=== PATIENT | female | born 1945 | race Caucasian/White ===

== ENCOUNTER 2019-06-30 05:20 | Inpatient (IN) ==
--- NOTE | 2019-06-16 16:31 | PAT Medication Instructions ---
Medication Instructions Date of Service June 16, 2019 Home Medications C,E,zinc,copper [id number] [Ocuvite Adult 50 Plus] 1 cap PO BID acetaminophen [Tylenol Extra Strength] 1,000 - 1,500 mg PO BID PRN apple cider vinegar 480 mg PO QAM ascorbic acid (vitamin C) [Vitamin C] 600 mg PO DAILY aspirin 81 mg PO HS atorvastatin 80 mg PO PM carvedilol 6.25 mg PO BID coQ10 (ubiquinol) 200 mg PO BID empagliflozin [Jardiance] 25 mg PO QAM hydrochlorothiazide 25 mg PO QAM lactobacillus combination no.4 [Probiotic] 3,000 mmu cells PO QAM liraglutide [Victoza 2-Rajesh] 1.8 mg SUBCUT QAM lisinopril 20 mg PO BID metformin 1,000 mg PO BID montelukast 10 mg PO QAM omeprazole 20 mg PO QAM paroxetine HCl 20 mg PO QAM potassium chloride 20 meq PO QAM ticagrelor [Brilinta] 60 mg PO BID ASK your prescriber and surgeon aspirin 81 mg PO HS ticagrelor [Brilinta] 60 mg PO BID STOP taking 2 weeks before surgery (or as soon as possible if surgery is within 2 weeks) coQ10 (ubiquinol) 200 mg PO BID apple cider vinegar 480 mg PO QAM DO NOT take the morning of surgery Ocuvite Adult 50 Plus 1 cap PO BID ascorbic acid (vitamin C) [Vitamin C] 600 mg PO DAILY empagliflozin [Jardiance] 25 mg PO QAM hydrochlorothiazide 25 mg PO QAM lactobacillus combination no.4 [Probiotic] 3,000 mmu cells PO QAM lisinopril 20 mg PO BID metformin 1,000 mg PO BID montelukast 10 mg PO QAM potassium chloride 20 meq PO QAM Take morning of surgery With a small sip of water, OTHERWISE NOTHING TO EAT OR DRINK AFTER MIDNIGHT: acetaminophen [Tylenol Extra Strength] 1,000 - 1,500 mg PO BID PRN (okay to take up to 4 hours prior to surgery if needed) carvedilol 6.25 mg PO BID liraglutide [Victoza 2-Rajesh] 1.8 mg SUBCUT QAM omeprazole 20 mg PO QAM paroxetine HCl 20 mg PO QAM Take evening before surgery Ocuvite Adult 50 Plus 1 cap PO BID acetaminophen [Tylenol Extra Strength] 1,000 - 1,500 mg PO BID PRN (if needed) atorvastatin 80 mg PO PM carvedilol 6.25 mg PO BID lisinopril 20 mg PO BID metformin 1,000 mg PO BID Other Notes If you have any questions please call us at [phone] or [phone] or [phone] or [phone]
--- NOTE | 2019-06-17 13:43 | Anesthesiology Consultation ---
Date of Service June 17, 2019 Assessment & Plan (1) Encounter for pre-operative examination: - Awaiting surgeon-ordered cardiology preop evaluation scheduled 06/23 (Dr. Fuchs). - Awaiting surgeon-ordered PCP preop [facility] as well as response regarding abnormal preop CXR. - Med instructions: ASA/Brillinta instructions per surgeon/prescriber. - Check BSG AM DOS Chart Review Chart Review: Patient seen in Pre Admission Testing Teaching & Discussion Pre-Anesthesia Teaching/Discussion Notes: Instructed NPO after midnight before surgery,except medications with 15 cc of water. Medication instructions provided according to the PAT guidelines. History Surgery Operation Date: 06/30/19 12:05 Proposed Procedures p Right Reverse Total Shoulder Arthroplasty - Daniel Alcala MD Height/Weight Height: 5 ft 4.5 in Weight: 69.4 kg Allergies Allergy/AdvReac Type Severity Reaction Status Date / Time No Known Allergies Allergy Verified 06/16/19 15:46 Medications Home Medications Medication Instructions Recorded Confirmed Last Taken C,E,zinc,copper [id number] 1 cap PO BID 06/16/19 06/16/19 Unknown [Ocuvite Adult 50 Plus] acetaminophen [Tylenol Extra 1,000 - 1,500 mg PO BID PRN 06/16/19 06/16/19 Unknown Strength] apple cider vinegar 480 mg PO QAM 06/16/19 06/16/19 Unknown ascorbic acid (vitamin C) [Vitamin 600 mg PO DAILY 06/16/19 06/16/19 Unknown C] aspirin 81 mg PO HS 06/16/19 06/16/19 Unknown atorvastatin 80 mg PO PM 06/16/19 06/16/19 Unknown carvedilol 6.25 mg PO BID 06/16/19 06/16/19 Unknown coQ10 (ubiquinol) 200 mg PO BID 06/16/19 06/16/19 Unknown empagliflozin [Jardiance] 25 mg PO QAM 06/16/19 06/16/19 Unknown hydrochlorothiazide 25 mg PO QAM 06/16/19 06/16/19 Unknown lactobacillus combination no.4 3,000 mmu cells PO QAM 06/16/19 06/16/19 Unknown [Probiotic] liraglutide [Victoza 2-Rajesh] 1.8 mg SUBCUT QAM 06/16/19 06/16/19 Unknown lisinopril 20 mg PO BID 06/16/19 06/16/19 Unknown metformin 1,000 mg PO BID 06/16/19 06/16/19 Unknown montelukast 10 mg PO QAM 06/16/19 06/16/19 Unknown omeprazole 20 mg PO QAM 06/16/19 06/16/19 Unknown paroxetine HCl 20 mg PO QAM 06/16/19 06/16/19 Unknown potassium chloride 20 meq PO QAM 06/16/19 06/16/19 Unknown ticagrelor [Brilinta] 60 mg PO BID 06/16/19 06/16/19 Unknown insulin glargine [Lantus U-100 10 unit SUBCUT QAM 06/20/19 06/20/19 Unknown Insulin] Past Medical History Medical History Arthritis CAD (coronary artery disease) stents x 5 (2017)- on ASA/Brillinta/beta gee Crohns disease remission (x 20 years) Diabetes mellitus, type 2 NIDDM (oral + injectable) GERD (gastroesophageal reflux disease) controlled Hyperlipidemia Hypertension Myocardial Infarction 2017/follows with cardiology (Dr. Fuchs) Exercise / Class Metabolic Activity III < 4 Walking/Shop/Light housework Past Family History Family History Uncle Family history of diabetes mellitus Uncle Family history of diabetes mellitus Uncle Family history of diabetes mellitus Past Surgical History Surgical History History of adenoidectomy History of appendectomy History of bilateral tubal ligation History of bunionectomy of right great toe WITH HAMMERTOES REPAIR History of cardiac cath 04/13/17 AND 04/14/17- TOTAL 5 STENTS History of carpal tunnel release R/L History of colonoscopy History of esophagogastroduodenoscopy (EGD) History of hysterectomy + UNILATERAL OOPHORECTOMY History of laparotomy FOR ADHESION REMOVAL History of repair of rotator cuff R/L History of tonsillectomy History of total knee replacement LEFT Past Anesthesia History No Hx of Anesthesia Complications and No Family Hx of Anesthesia Complications History of PONV No Hx of PONV and No Hx of Motion Sickness Social History Smoking Status: Never smoker Do You Dip or Chew Tobacco: No Hx Alcohol Use: Yes Alcohol type: wine alcohol intake frequency: holidays/special occasions only Hx Substance Use: No Review of Systems Reflux controlled. Patient denies chest pain, shortness of breath, cough, wheezing, palpitations. Physical Exam Vital Signs VITALS BP 118/79 P 67 TEMP 98.1 SP02 94%RA RESP 20 PHYSICAL Full neck and c-spine range of motion. Full TMJ range of motion. TMD 3 finger breaths Mallampati Score 3 Dentition: intact Lungs: clear throughout to auscultation Cardiac: regular rate and rhythm, no murmurs noted Spine: normal Carotid arteries: negative bruit Extremities: no edema Testing Laboratory Results 06/17/19 14:22 06/17/19 14:20 PT 10.3 Seconds (9.0-12.0) 06/17/19 14:22 INR 1.0 (0.9-1.1) 06/17/19 14:22 APTT 24.3 Seconds (21.0-31.0) 06/17/19 14:22 Hemoglobin A1c 6.9 % (4.5-5.6) H 06/17/19 14:22 Urine Color Yellow 06/17/19 14:22 Urine Appearance Clear (Clear) 06/17/19 14:22 Urine pH 5.0 (4.5-7.5) 06/17/19 14:22 Ur Specific [place] 1.019 (1.000-1.030) 06/17/19 14:22 Urine Protein Negative (Negative) 06/17/19 14:22 Urine Glucose (UA) 3+ (Negative) H 06/17/19 14:22 Urine Ketones Negative (Negative) 06/17/19 14:22 Urine Nitrite Negative (Negative) 06/17/19 14:22 Ur Leukocyte Esterase Negative (Negative) 06/17/19 14:22 Blood Type O Positive 06/17/19 14:22 Antibody Screen NEGATIVE 06/17/19 14:22 06/17/19 14:22 Urine Culture - Final Urine,Clean Catch Escherichia coli Surgeon office made aware of + urine culture/e.coli Electrocardiogram Date: 06/17/19 Findings: + NSR @ (67) Chest X-Ray Date: 06/17/19 A few vague densities which project over the right midlung. These may reflect pleural plaques but are indeterminate. In the absence of prior studies for comparison, a chest CT is recommended. Echocardiogram Date: 07/20/17 LVEF 63%. No RWMA. Stress Test Date: 03/31/18 Type: nuclear No evidence of myocardial ischemia/infarction. EF 63%. Wall motion is normal.
--- NOTE | 2019-06-17 15:17 | XRay Report ---
XR chest Pre-admission PA/Lat CLINICAL HISTORY: Preoperative evaluation. COMPARISON STUDY: No previous studies for comparison. FINDINGS: Lung volumes are normal. There is no pneumothorax or pleural effusion. Cardiac size is norm al. Mediastinal contours are normal. There is no evidence for pulmonary edema. A few vague densities project over the right hemithorax. Postoperative findings within the right shoulder are noted. IMPRESSION: A few vague densities which project over the right midlung. These may reflect pleural pl aques but are indeterminate. In the absence of prior studies for comparison, a chest CT is recommende d. ACT 112: Negative or not required by law. Electronically signed by: Francisco Myers M.D. 06/17/2019 3:16 PM
[2019-06-17 15:56] LABS: Appearance Urine Clear (Clear); Bilirubin Urine Negative (Negative); Blood Urine Negative (Negative); Color Urine Yellow; Glucose Urine UA 3+ (Negative); Ketones Urine Negative (Negative); Leukocyte Esterase Urine Negative (Negative); Nitrite Urine Negative (Negative); Protein Urine Negative (Negative); Specific Gravity Urine 1.019 (1.000-1.030); Urobilinogen Urine Negative (Negative)
[2019-06-17 15:57] LABS: Basophils # (auto) 0.03 K/uL (0-0.2); Basophils % (auto) 0.4 %; Eosinophils # (auto) 0.22 K/uL (0-0.5); Eosinophils % (auto) 2.7 %; Hematocrit (blood only) 42.1 % (37-47); Hemoglobin 13.4 g/dL (12.0-16.0); Immature Granulocytes # (auto) 0.02 K/uL (0.00-0.02); Immature Granulocytes % (auto) 0.2 %; Lymphocytes # (auto) 2.14 K/uL (1.2-3.4); Lymphocytes % (auto) 26.3 %; Mean Corpuscular Hgb Conc 31.8 g/dL (32-36); Mean Corpuscular Volume 100.5 fL (80-100); Mean Platelet Volume 9.3 fL (7.4-10.4); Monocytes # (auto) 0.52 K/uL (0.11-0.59); Monocytes % (auto) 6.4 %; Neutrophils # (auto) 5.22 K/uL (1.4-6.5); Platelet Count 354 K/uL (130-400); RDW Coefficient of Variation 13.2 % (11.5-14.5); RDW Standard Deviation 48.3 fL (36.4-46.3); Red Blood Count 4.19 M/uL (4.2-5.4); White Blood Count 8.15 K/uL (4.8-10.8)
[2019-06-17 15:59] LABS: Albumin Level 3.9 gm/dl (3.4-5.0); BUN Creatinine Ratio 26.3 (10-20); Calcium 9.8 mg/dl (8.5-10.1); Creatinine Clr Calc Pharmacy 73.2 ml/min; Est GFR (African American) 101.6; Est GFR (Non-African American) 87.6; Potassium 4.1 mmol/L (3.5-5.1)
[2019-06-17 16:05] LABS: Partial Thromboplastin Ratio 0.9; Partial Thromboplastin Time 24.3 Seconds (21.0-31.0); Prothrombin Time 10.3 Seconds (9.0-12.0)
[2019-06-18 06:19] LABS: Estimated Average Glucose 151 mg/dl; Hemoglobin A1C 6.9 % (4.5-5.6)
--- NOTE | 2019-06-18 07:48 | Electrocardiogram Report ---
Test Reason : Blood Pressure : / mmHG Vent. Rate : 067 BPM Atrial Rate : 067 BPM P-R Int : 164 ms QRS Dur : 086 ms QT Int : 394 ms P-R-T Axes : 039 048 057 degrees QTc Int : 416 ms Normal sinus rhythm Normal ECG No previous ECGs available Confirmed by Benedict Gonzalez ([id number]) on 06/18/2019 7:48:15 AM Referred By: Daniel Alcala Confirmed By:Demarcus Gonzalez
--- NOTE | 2019-06-29 16:30 | History & Physical Report ---
Date of Service June 29, 2019 Assessment & Plan (1) Rotator cuff arthropathy of right shoulder: Treatment options discussed. She has failed conservative measures as above. Risks, benefits and alternatives to surgery including but not limited to infection, DVT, pain, stiffness, need for revision surgery, damage to blood vessels, damage to nerves, PE, , were discussed with the patient and they wish to proceed. Plan will be for right reverse total shoulder arthroplasty. Will plan on outpatient PT upon discharge. She can resume her daily aspirin and Brillinta post operatively. All questions answered. F/u in the office post operatively. History of Present Illness Chief Complaint: Right shoulder pain Primary Care Provider: Mikey Steel DO 74 year old female with PMHx significant for history of SD, HTN, high cholesterol, GERD, anxiety, and DM2 presents with ongoing right shoulder pain. Past RCR done in 2009. Updated MRI chronic massive and retracted rotator cuff tear. She has tried cortisone injection, antiinflammatories, and physical therapy with continued pain. She would like to proceed with surgical intervention. Patient denies headaches, sweats, fevers, chills, double vision, blurred vision, cough, sore throat, dysphagia, chest pain, sob, wheezing, n/v/d/c, numbness, tingling, fatigue, urinary symptoms, mood disorders. ROS positive for right shoulder pain and stiffness. Allergies Allergy/AdvReac Type Severity Reaction Status Date / Time No Known Allergies Allergy Verified 06/16/19 15:46 Home Medications Home Medications Medication Instructions Recorded Confirmed Type C,E,zinc,copper [id number] 1 cap PO BID 06/16/19 06/16/19 History [Ocuvite Adult 50 Plus] acetaminophen [Tylenol Extra 1,000 - 1,500 mg PO BID PRN 06/16/19 06/16/19 History Strength] apple cider vinegar 480 mg PO QAM 06/16/19 06/16/19 History ascorbic acid (vitamin C) [Vitamin 600 mg PO DAILY 06/16/19 06/16/19 History C] aspirin 81 mg PO HS 06/16/19 06/16/19 History atorvastatin 80 mg PO PM 06/16/19 06/16/19 History carvedilol 6.25 mg PO BID 06/16/19 06/16/19 History coQ10 (ubiquinol) 200 mg PO BID 06/16/19 06/16/19 History empagliflozin [Jardiance] 25 mg PO QAM 06/16/19 06/16/19 History hydrochlorothiazide 25 mg PO QAM 06/16/19 06/16/19 History lactobacillus combination no.4 3,000 mmu cells PO QAM 06/16/19 06/16/19 History [Probiotic] liraglutide [Victoza 2-Rajesh] 1.8 mg SUBCUT QAM 06/16/19 06/16/19 History lisinopril 20 mg PO BID 06/16/19 06/16/19 History metformin 1,000 mg PO BID 06/16/19 06/16/19 History montelukast 10 mg PO QAM 06/16/19 06/16/19 History omeprazole 20 mg PO QAM 06/16/19 06/16/19 History paroxetine HCl 20 mg PO QAM 06/16/19 06/16/19 History potassium chloride 20 meq PO QAM 06/16/19 06/16/19 History ticagrelor [Brilinta] 60 mg PO BID 06/16/19 06/16/19 History insulin glargine [Lantus U-100 10 unit SUBCUT QAM 06/20/19 06/20/19 History Insulin] Past Med/Surg History Medical History Arthritis CAD (coronary artery disease) stents x 5 (2017)- on ASA/Brillinta/beta gee Crohns disease remission (x 20 years) Diabetes mellitus, type 2 NIDDM (oral + injectable) GERD (gastroesophageal reflux disease) controlled Hyperlipidemia Hypertension Myocardial Infarction 2017/follows with cardiology (Dr. Fuchs) Surgical History History of adenoidectomy History of appendectomy History of bilateral tubal ligation History of bunionectomy of right great toe WITH HAMMERTOES REPAIR History of cardiac cath 04/13/17 AND 04/14/17- TOTAL 5 STENTS History of carpal tunnel release R/L History of colonoscopy History of esophagogastroduodenoscopy (EGD) History of hysterectomy + UNILATERAL OOPHORECTOMY History of laparotomy FOR ADHESION REMOVAL History of repair of rotator cuff R/L History of tonsillectomy History of total knee replacement LEFT Family History Uncle Family history of diabetes mellitus Uncle Family history of diabetes mellitus Uncle Family history of diabetes mellitus Social History Preferred Language: Sammarinese Communication Ability: Effective Outpatient Therapist Required: No Beliefs That Will Affect Care: None Current Living Situation: Alone Other Information That Helps Us Care for You: No Feels Safe at Home: Yes Safety Concerns: Feels Safe At This Time Smoking Status: Never smoker Do You Dip or Chew Tobacco: No ; Second Hand Exposure: Yes ( A CHILD) ; Hx Alcohol Use: Yes Alcohol type: wine Hx Substance Use: No Review of Systems All systems reviewed & are unremarkable except as noted in HPI & below Physical Exam Constitutional: well developed and well nourished; no acute distress Eyes: PERRL, conjunctivae normal, anicteric sclerae ENMT: external ear and nose normal, oropharynx normal Neck: trachea midline, no thyromegaly Respiratory: normal respiratory effort, lungs clear to auscultation Cardiovascular: Rate/Rhythm: regular rate and regular rhythm Extremities: no edema Question of possible systolic murmur Musculoskeletal: right shoulder: Active painful and decreased ROM. Positive impingement signs. 3/5 strength supraspinatus and infraspinatus Skin: no rashes, warm and dry Neurologic: patellar DTR's 2+ bilat, sensation intact Psychiatric: A+Ox3, euthymic affect Results & Data Laboratory Results Lab Results 06/17/19 06/17/19 06/17/19 Range/Units 14:20 14:22 14:22 WBC 8.15 (4.8-10.8) K/uL RBC 4.19 L (4.2-5.4) M/uL Hgb 13.4 (12.0-16.0) g/dL Hct 42.1 (37-47) % MCV 100.5 H (80-100) fL MCH 32.0 (25-34) pg MCHC 31.8 L (32-36) g/dL RDW Std Deviation 48.3 H (36.4-46.3) fL RDW Coeff of Radha 13.2 (11.5-14.5) % Plt Count 354 (130-400) K/uL MPV 9.3 (7.4-10.4) fL Immature Gran % (Auto) 0.2 % Neut % (Auto) 64.0 % Lymph % (Auto) 26.3 % [place] % (Auto) 6.4 % Eos % (Auto) 2.7 % Baso % (Auto) 0.4 % Immature Gran # (Auto) 0.02 (0.00-0.02) K/uL Neut # (Auto) 5.22 (1.4-6.5) K/uL Lymph # (Auto) 2.14 (1.2-3.4) K/uL [place] # (Auto) 0.52 (0.11-0.59) K/uL Eos # (Auto) 0.22 (0-0.5) K/uL Baso # (Auto) 0.03 (0-0.2) K/uL PT 10.3 (9.0-12.0) Seconds INR 1.0 (0.9-1.1) APTT 24.3 (21.0-31.0) Seconds PTT Ratio 0.9 Sodium 135 L (136-145) mmol/L Potassium 4.1 (3.5-5.1) mmol/L Chloride 103 (98-107) mmol/L Carbon Dioxide 26 (21-32) mmol/L Anion Gap 6.0 (3-11) BUN 17 (7-18) mg/dl Creatinine 0.66 (0.6-1.2) mg/dl Est Cr Clr Drug Dosing 73.2 ml/min Est GFR ( Amer) 101.6 Est GFR (Non-Af Amer) 87.6 BUN/Creatinine Ratio 26.3 H (10-20) Glucose 122 H (70-99) mg/dl Estimat Average Glucose mg/dl Hemoglobin A1c (4.5-5.6) % Calcium 9.8 (8.5-10.1) mg/dl Albumin 3.9 (3.4-5.0) gm/dl Urine Color Urine Appearance (Clear) Urine pH (4.5-7.5) Ur Specific [place] (1.000-1.030) Urine Protein (Negative) Urine Glucose (UA) (Negative) Urine Ketones (Negative) Urine Blood (Negative) Urine Nitrite (Negative) Urine Bilirubin (Negative) Urine Urobilinogen (Negative) Ur Leukocyte Esterase (Negative) Blood Type Antibody Screen 06/17/19 06/17/19 06/17/19 Range/Units 14:22 14:22 14:22 WBC (4.8-10.8) K/uL RBC (4.2-5.4) M/uL Hgb (12.0-16.0) g/dL Hct (37-47) % MCV (80-100) fL MCH (25-34) pg MCHC (32-36) g/dL RDW Std Deviation (36.4-46.3) fL RDW Coeff of Radha (11.5-14.5) % Plt Count (130-400) K/uL MPV (7.4-10.4) fL Immature Gran % (Auto) % Neut % (Auto) % Lymph % (Auto) % [place] % (Auto) % Eos % (Auto) % Baso % (Auto) % Immature Gran # (Auto) (0.00-0.02) K/uL Neut # (Auto) (1.4-6.5) K/uL Lymph # (Auto) (1.2-3.4) K/uL [place] # (Auto) (0.11-0.59) K/uL Eos # (Auto) (0-0.5) K/uL Baso # (Auto) (0-0.2) K/uL PT (9.0-12.0) Seconds INR (0.9-1.1) APTT (21.0-31.0) Seconds PTT Ratio Sodium (136-145) mmol/L Potassium (3.5-5.1) mmol/L Chloride (98-107) mmol/L Carbon Dioxide (21-32) mmol/L Anion Gap (3-11) BUN (7-18) mg/dl Creatinine (0.6-1.2) mg/dl Est Cr Clr Drug Dosing ml/min Est GFR ( Amer) Est GFR (Non-Af Amer) BUN/Creatinine Ratio (10-20) Glucose (70-99) mg/dl Estimat Average Glucose 151 mg/dl Hemoglobin A1c 6.9 H (4.5-5.6) % Calcium (8.5-10.1) mg/dl Albumin (3.4-5.0) gm/dl Urine Color Yellow Urine Appearance Clear (Clear) Urine pH 5.0 (4.5-7.5) Ur Specific [place] 1.019 (1.000-1.030) Urine Protein Negative (Negative) Urine Glucose (UA) 3+ H (Negative) Urine Ketones Negative (Negative) Urine Blood Negative (Negative) Urine Nitrite Negative (Negative) Urine Bilirubin Negative (Negative) Urine Urobilinogen Negative (Negative) Ur Leukocyte Esterase Negative (Negative) Blood Type O Positive Antibody Screen NEGATIVE Diagnostic Findings Right shoulder imaging demonstrates significant humeral head elevation with rounded humeral head. Arthrogram demonstrates massive retracted chronic rotator cuff tear
[2019-06-30] MEDS ORDERED: FAMOTIDINE 20 MG TAB PO SCH (06:00)
[2019-06-30] MEDS ORDERED: TRANEXAMIC ACID 1,000 MG **IV Pre-op IV SCH (06:00)
[2019-06-30] MEDS ORDERED: CeleBREX 200 MG CAP PO SCH (06:00)
[2019-06-30] MEDS ORDERED: CEFAZOLIN 2000MG 2,000 MG/15 ML SYR IV SCH (06:00)
[2019-06-30] MEDS ORDERED: dexAMETHasone 4 MG TAB PO SCH (06:00)
[2019-06-30] MEDS ORDERED: METOCLOPRAMIDE HCL 10 MG TABLET PO SCH (06:00)
[2019-06-30] MEDS ORDERED: LR 15ML/HR IV SCH (06:00)
[2019-06-30] MEDS ORDERED: ROPIVACAINE 0.5% HCL/PF 150 MG, BUPIVACAINE 0.5% MPF 30 ML, EPINEPHrine 30MG/30ML (OR U... INFIL SCH (06:00)
[2019-06-30] MEDS ORDERED: ACETAMINOPHEN 500 MG TAB PO SCH (06:00)
[2019-06-30] MEDS ORDERED: TRANEXAMIC ACID 1,000 MG **IV Intra-op IV SCH (06:00)
[2019-06-30] MEDS ORDERED: FAMOTIDINE 20 MG TAB ONE (06:10)
[2019-06-30] MEDS ORDERED: dexAMETHasone 4 MG TAB PO ONE (06:10)
[2019-06-30] MEDS ORDERED: CeleBREX 200 MG CAP ONE (06:10)
[2019-06-30] MEDS ORDERED: METOCLOPRAMIDE HCL 10 MG TABLET ONE (06:10)
[2019-06-30] MEDS ORDERED: ACETAMINOPHEN 500 MG TAB ONE (06:11)
[2019-06-30] MEDS ORDERED: TRANEXAMIC ACID / 0.7% NACL 1000MG/100ML BAG IV ONE (06:11)
[2019-06-30] MEDS ORDERED: ROPIVACAINE 0.5% 5 MG/ML 30 ML VIAL ONE (06:17)
[2019-06-30] MEDS ORDERED: BACITRACIN INJ 50,000 UNIT VIAL ONE (06:31)
[2019-06-30] MEDS ORDERED: THROMBIN FOR SOLN 20000 UNIT KIT ONE (06:31)
[2019-06-30] MEDS ORDERED: VANCOMYCIN HCL 1000MG/20ML VIAL ONE (06:31)
[2019-06-30] MEDS ORDERED: ONDANSETRON INJ 2 MG/ML 2 ML VIAL ONE (06:42)
[2019-06-30] MEDS ORDERED: ROCURONIUM BROMIDE 10 MG/ML 5 ML VIAL ONE (06:42)
[2019-06-30] MEDS ORDERED: LIDOCAINE HCL 2% 2 ML VIAL/AMP(20MG/ML) INFIL ONE (06:42)
[2019-06-30] MEDS ORDERED: PROPOFOL IV EMULSION 10 MG/ML 20 ML VIAL IV ONE (06:42)
[2019-06-30] MEDS ORDERED: fentaNYL citrate 100 MCG/2 ML VIAL ONE (06:42)
[2019-06-30] MEDS ORDERED: MIDAZOLAM HCL 1 MG/ML 2ML VIAL ONE (06:42)
[2019-06-30] MEDS ORDERED: ATROPINE SULFATE 0.1 MG/ML 10ML SYR IV PRN (06:43)
[2019-06-30] MEDS ORDERED: ePHEDrine sulfate 50 MG/ML AMP IV PRN (06:43)
[2019-06-30] MEDS ORDERED: fentaNYL citrate 100 MCG/2 ML VIAL IV PRN (06:43)
[2019-06-30] MEDS ORDERED: ONDANSETRON INJ 2 MG/ML 2 ML VIAL IV PRN ×2 (06:43→10:08)
--- NOTE | 2019-06-30 06:55 | History & Physical Bridge Note ---
Date of Service June 30, 2019 History & Physical Bridge Note I have examined the patient, reviewed the History & Physical and in the interval since the performance of the History & Physical I have noted the following changes of clinical significance: no changes noted
[2019-06-30] MEDS: CEFAZOLIN 2,000 MG/15 ML IV PUSH IV ONE ×2 (07:06→07:34)
[2019-06-30] MEDS ORDERED: GLYCOPYRROLATE 0.2 MG/ML VIAL ONE (08:32)
[2019-06-30] MEDS ORDERED: PHENYLEPHRINE HCL 10 MG/ML VIAL ONE (08:32)
[2019-06-30] MEDS ORDERED: NEOSTIGMINE METHYLSULFATE 5 MG/5 ML SYR ONE (08:32)
--- NOTE | 2019-06-30 08:42 | Operative Report ---
Post Operative Report Pre & Post Diagnosis Operation Date: 06/30/19 07:00 Pre-Op Diagnosis: Right Shoulder Arthropathy Post-Op Diagnosis: Right Shoulder Arthropathy plus tear of long head biceps I identified the patient and participated in the time-out.: Yes Procedure Operation Date: 06/30/19 07:00 Actual Procedures p Right Reverse Total Shoulder Arthroplasty(Right) - Daniel Alcala MD Surgeon Daniel Alcala MD Hydraulic Chair Assembler Thony Beal PA-C Estimated Blood Loss 20 Findings Consistent with Post-Op Diagnosis Specimens humeral head Drains 1 hemovac Anesthesia Type General Regional Complications none Disposition Accompanied Patient To Recovery: No Disposition: Recovery Room Indications The patient is a 74-year-old female longstanding pain in the right shoulder. She has changes on her x-ray consistent with rotator cuff arthropathy including humeral head elevation and rounding of the humeral head. She has failed conservative measures and wishes to proceed with a right reverse total shoulder arthroplasty Description of Procedure Risks, benefits and alternatives to surgery including, but not limited to, infection DVT, pain, stiffness, need for revision surgery, failure to relieve all symptoms, damage to blood vessels, damage to nerves, risk of anesthesia were discussed with the patient and they wished to proceed. The patient was identified. Laterality was confirmed and marked. The patient received a preoperative antibiotic as well as an interscalene block. They were transferred to the operating room and placed in the supine position and induced into general endotracheal anesthesia per the anesthesia staff. The patient was then safely transferred to a slight beachchair position. The patient was secured in the Tenet positioner. All pressure points were well padded. The shoulder was prepped and draped in the usual sterile manner with ChloraPrep. The arm was secured in the Spider talbert. I made a longitudinal incision just lateral to the coracoid, sharply incising through the skin and utilizing Bovie electrocautery to achieve hemostasis. I identified the cephalic vein and mobilized it laterally with the deltoid. I mobilize the pectoralis and mobilize this medially releasing a small portion of the upper border of the pec tendon to improve visualization. I then identified and mobilized the conjoined tendon. I identified the long head of the biceps tendon. The long head of the biceps tendon had significant tendinosis and tearing proximally. I performed an in situ biceps tenodesis with interrupted #2 FiberWire suture. I then released the subscapularis. I pinned into place my humeral head version cutting guide and made my humeral head resection. I then sequentially reamed and sequentially broached. I then placed the trial humeral stem into the shoulder. I placed retractors around the glenoid and then excised the residual biceps tendon stump and glenoid labrum. I elevated the soft tissues and the inferior aspect of the glenoid to improve exposure and released tissues circumferentially. I then positioned and drilled for the central post for the glenoid plate. The glenoid plate was bone grafted with bone taken from the humeral head. I impacted the definitive glenoid plate into position and then placed a total of 4 compression screws that were then locked into position with locking caps. I then placed the glenosphere onto the plate and secured it with a locking screw. I then removed the trial humeral stem and placed the definitive humeral stem. I trialed off of the definitive stem. The definitive components used were [employer] Equinox: Preserve short humeral press-fit stem: 6 Standard glenoid plate Glenosphere: 38 Humeral tray:+ 0 Humeral polyethylene liner: + 2.5 I thoroughly irrigated the wound. Deep tissues were anesthetized with an orthomix solution. I then locked my definitive humeral tray into position with a torque limiting screw. I then impacted the definitive humeral polyethylene liner into position. I then reduced the shoulder. There was good range of motion and good stability after the reduction. The wound was again thoroughly irrigated and a Betadine soak was performed. A deep drain was placed. The deltopectoral interval was closed with interrupted #1 Ethibond suture. The subcutaneous tissue was closed with interrupted 2-0 Vicryl suture. The skin was closed with blossom. A sterile dressing was applied. A sling was placed. All needle and sponge counts were correct at the end of the procedure. The patient was transferred to the PACU in stable condition without apparent complication. The PA-C was necessary for assistance with procedure for assistance in positioning, prepping, draping, retraction and closure. I attest to the content of the Intraoperative Record and any orders documented therein. Any exceptions are noted below.
--- NOTE | 2019-06-30 09:34 | XRay Report ---
XR shoulder RT min 2V routine CLINICAL HISTORY: Post shoulder surgery COMPARISON: None. DISCUSSION: There are postsurgical changes of a reverse total right shoulder arthroplasty. There is n o dislocation. There are overlying skin blossom and surgical drains. There are no acute fractures. IMPRESSION: Postsurgical changes of a reverse total right shoulder arthroplasty. ACT 112: Negative or not required by law. Electronically signed by: Erwin Pelletier M.D. 06/30/2019 9:33 AM
--- NOTE | 2019-06-30 09:46 | Anesthesiology Progress Note ---
Date of Service June 30, 2019 Anesthesia Post Procedure Vital Signs Vital Signs: Temp Pulse Pulse Resp BP BP Pulse Ox 06/30/19 09:40 97.5 F L 60 20 104/59 L 96 06/30/19 09:30 59 L 20 109/66 96 06/30/19 09:20 57 L 19 105/59 L 96 06/30/19 09:10 97.0 F L 58 L 16 116/63 95 06/30/19 06:01 98.1 F 87 16 97/66 L 93 Pain Intensity Right Arm: Pain Intensity: 6 Transfer of Care Handoff Completed per policy Notes Mental Status: alert / awake / arousable and participated in evaluation Patient Amnestic to Procedure: Yes Nausea / Vomiting: adequately controlled Pain: adequately controlled Airway Patency, RR, SpO2: stable & adequate BP & HR: stable & adequate Hydration State: stable & adequate Anesthetic Complications: no major complications apparent and Pt Satisfied with anesthetic care
[2019-06-30] MEDS ORDERED: bisacodyL 10 MG SUPP PR PRN (10:08)
[2019-06-30] MEDS ORDERED: NALOXONE HCL 0.4 MG/1 ML VIAL/CARP IV PRN (10:08)
[2019-06-30] MEDS ORDERED: METOCLOPRAMIDE HCL INJ 5 MG/ML 2 ML VIAL IV PRN (10:08)
[2019-06-30] MEDS ORDERED: MAGNESIUM HYDROXIDE SUSP 30 ML UDC PO PRN (10:08)
[2019-06-30] MEDS ORDERED: HYDROmorphone INJ 0.5 MG/0.5 ML SYR IV PRN (10:08)
[2019-06-30] MEDS ORDERED: PHARMACY GLYCEMIC MGMT CONSULT PRN (10:25)
[2019-06-30] MEDS ORDERED: SODIUM CHLORIDE 0.9% 1000ML 1,000 ML IV SCH (10:30)
[2019-06-30] MEDS ORDERED: GLUCOSE 10 TABS/TUBE PO PRN (11:15)
[2019-06-30] MEDS ORDERED: DEXTROSE 50% 50 ML SYRINGE IV PRN (11:15)
[2019-06-30] MEDS ORDERED: GLUCOSE 40% GEL 15 GM TUBE PO PRN (11:15)
[2019-06-30] MEDS ORDERED: CARBOHYDRATES FOR HYPOGLYCEMIA PO PRN (11:15)
[2019-06-30] MEDS ORDERED: GLUCAGON FOR INJ 1 MG VIAL SQ PRN (11:15)
[2019-06-30] MEDS ORDERED: INSULIN GLARGINE SOLOSTAR 100 UNITS/ML 3 ML PEN SC SCH (11:30)
[2019-06-30] MEDS: INSULIN ASPART 100 UNITS/ML 3 ML PEN SC SCH ×3 (13:06→21:21)
[2019-06-30] MEDS: ACETAMINOPHEN 500 MG TAB PO SCH ×2 (14:19→21:22)
[2019-06-30] MEDS: CEFAZOLIN 1000MG 1,000 MG/7.5 ML SYR IV SCH ×2 (14:19→22:17)
--- NOTE | 2019-06-30 15:09 | Pharmacy Report ---
Glycemic Control Consultation - Date of Service June 30, 2019 - Scope Scope: Glycemic Pharmacist consulted by PARMJIT Wiggins on 06/30 for glycemic control and to write orders per [facility] inpatient glycemic control protocol - Objective Weight: 68.353 kg Accuchecks BSG (last 24hrs): 06/30/19 06/30/19 06/30/19 05:45 09:14 11:22 POC Glucose 154 H 182 H 191 H HbA1c: Hemoglobin A1c 6.9 % (4.5-5.6) H 06/17/19 14:22 - Recent Pertinent Medications Outpatient Anti-diabetic Regimen: * Metformin 1 gm BID * Jardiance 25 mg daily * Victoza 1.8 mg SQ daily * Lantus 10 units daily * A1c = 6.9 % 06/17/19 Risk Factors for Insulin Resistance: * Steroids: Decadron 8 mg PO preop * Recent Surgery: POD 0 s/p R shoulder arthroplasty * Diet: T2DM - Assessment & Plan Assessment & Plan: ASSESSMENT: * 74 y/o F admitted s/p R shoulder arthroplasty. H/o T2DM, well controlled with basal insulin + GLP-1 + oral agents. Patient reports her last dose of Lantus was yesterday AM but she did take her Victoza this morning. * BSGs are already increasing s/p Decadron given preop. She was eating a late breakfast tray when I walked in to speak with her so I asked the nurse to cover the CHO from her PO intake. * Will utilize basal/bolus therapy as an inpatient. Expect BSG elevation from Decadron over the next 24-36 hours. PLAN FOR INPATIENT GLYCEMIC CONTROL: * Holding outpatient oral diabetes medications + GLP-1 agonist * Basal insulin * Lantus 34 units x 1 now (0.35 units/kg dose in addition to outpatient dose of 10 units) * Lantus qAM per the following scale: * 10 units for BSG < 140 * 20 units for BSG 140 or above * Bolus insulin * NovoLog per scale ACHS or Q6hrs while NPO + 0200 * Goal Range: Low 110 mg/dL - High 140 mg/dL * Correction Factor: 25 mg/dL/unit * Nutritional / Prandial insulin per carb ratio of 1 unit per 8 grams CHO consumed Discharge Recommendations: * A1c 6.9% on 1/3/20 * Goal A1c < 7% based on age/comorbidities * Recommend to continue outpatient regimen on discharge Thank you.
[2019-06-30] MEDS: MISSING PHYSICIAN SIGNATURE ON ORDER SCH (15:59)
--- NOTE | 2019-06-30 17:19 | Hospitalist Consultation ---
Date of Consultation June 30, 2019 Assessment & Plan (1) Rotator cuff arthropathy of right shoulder: s/p OR on 06/[address] Alcala Diet, DVT proph as per ortho Pre-op Hb 13.4 (2) Myocardial Infarction: stents placed [address] Fuchs if needed (3) Hypertension: continue home meds (4) Hyperlipidemia: continue home meds (5) GERD (gastroesophageal reflux disease): continue home meds (6) Diabetes mellitus, type 2: continue home meds SSI PRN (7) Crohns disease: In remission for years No current meds (8) DVT prophylaxis: As per ortho History of Present Illness Attending Physician: Daniel Alcala MD History of Present Illness 74 y/o F who was admitted on 06/30 s/p R shoulder with Dr. Alcala. Pt is doing well post-op. Tolerating PO without issue. Pt denies fever, SOB, chest pain, abd pain, n/v/c/d, LE swelling. No pain in shoulder yet. Allergies Allergy/AdvReac Type Severity Reaction Status Date / Time No Known Allergies Allergy Verified 06/30/19 05:45 Home Medications Home Medications Medication Instructions Recorded Confirmed Type C,E,zinc,copper [id number] 1 cap PO BID 06/16/19 06/30/19 History [Ocuvite Adult 50 Plus] acetaminophen [Tylenol Extra 1,000 - 1,500 mg PO BID PRN 06/16/19 06/30/19 History Strength] apple cider vinegar 480 mg PO QAM 06/16/19 06/30/19 History ascorbic acid (vitamin C) [Vitamin 600 mg PO DAILY 06/16/19 06/30/19 History C] aspirin 81 mg PO HS 06/16/19 06/30/19 History atorvastatin 80 mg PO PM 06/16/19 06/30/19 History carvedilol 6.25 mg PO BID 06/16/19 06/16/19 History coQ10 (ubiquinol) 200 mg PO BID 06/16/19 06/30/19 History empagliflozin [Jardiance] 25 mg PO QAM 06/16/19 06/30/19 History hydrochlorothiazide 25 mg PO QAM 06/16/19 06/30/19 History lactobacillus combination no.4 3,000 mmu cells PO QAM 06/16/19 06/30/19 History [Probiotic] liraglutide [Victoza 2-Rajesh] 1.8 mg SUBCUT QAM 06/16/19 06/16/19 History lisinopril 20 mg PO BID 06/16/19 06/30/19 History metformin 1,000 mg PO BID 06/16/19 06/30/19 History montelukast [Singulair] 10 mg PO QAM 06/16/19 06/30/19 History omeprazole 20 mg PO QAM 06/16/19 06/16/19 History paroxetine HCl 20 mg PO QAM 06/16/19 06/16/19 History potassium chloride 20 meq PO QAM 06/16/19 06/30/19 History ticagrelor [Brilinta] 60 mg PO BID 06/16/19 06/30/19 History insulin glargine [Lantus U-100 10 unit SUBCUT QAM 06/20/19 06/30/19 History Insulin] Patient History Medical History Arthritis CAD (coronary artery disease) stents x 5 (2017)- on ASA/Brillinta/beta gee Crohns disease remission (x 20 years) Diabetes mellitus, type 2 NIDDM (oral + injectable) GERD (gastroesophageal reflux disease) controlled Hyperlipidemia Hypertension Myocardial Infarction 2017/follows with cardiology (Dr. Fuchs) Surgical History History of adenoidectomy History of appendectomy History of bilateral tubal ligation History of bunionectomy of right great toe WITH HAMMERTOES REPAIR History of cardiac cath 04/13/17 AND 04/14/17- TOTAL 5 STENTS History of carpal tunnel release R/L History of colonoscopy History of esophagogastroduodenoscopy (EGD) History of hysterectomy + UNILATERAL OOPHORECTOMY History of laparotomy FOR ADHESION REMOVAL History of repair of rotator cuff R/L History of tonsillectomy History of total knee replacement LEFT Family History Uncle Family history of diabetes mellitus Uncle Family history of diabetes mellitus Uncle Family history of diabetes mellitus Social History Preferred Language: British Communication Ability: Effective Box Estimator Required: No Beliefs That Will Affect Care: None Current Living Situation: Alone Other Information That Helps Us Care for You: No Feels Safe at Home: Yes Safety Concerns: Feels Safe At This Time Smoking Status: Never smoker Do You Dip or Chew Tobacco: No ; Second Hand Exposure: Yes ( A CHILD) ; Hx Alcohol Use: Yes Alcohol type: wine Hx Substance Use: No Review of Systems Review of Systems: Pertinent positives and negatives reviewed in HPI--all others negative Physical Exam Constitutional: WD/WN, vitals as above Eyes: normal visual blackman by confrontation and + anicteric sclerae Neck: normal visual inspection and trachea midline Respiratory: normal respiratory effort, lungs clear to auscultation Cardiovascular: Rate/Rhythm: regular rate and regular rhythm Gastrointestinal (Abdomen): Inspection/Auscultation: abdomen not distended Percussion/Palpation: abdomen soft; abdomen nontender Musculoskeletal: Head/Neck/Chest: normocephalic and head atraumatic negative for edema, peripheral pulses intact Skin: no rashes, warm and dry Neurologic: awake; not confused Speech / Cognition: normal speech Psychiatric: A+Ox3, euthymic affect Results & Data Vital Signs (Past 12 Hours) Vital Signs Temp Pulse Pulse Resp BP BP Pulse Ox 06/30/19 15:47 36.5 C 77 16 104/63 93 06/30/19 13:16 36.4 C L 92 H 16 113/72 94 06/30/19 12:00 77 16 111/73 97 06/30/19 11:07 65 18 131/80 95 06/30/19 10:32 61 16 115/65 96 06/30/19 10:00 36.6 C 60 19 100/58 L 95 06/30/19 09:49 36.5 C 63 20 106/65 96 06/30/19 09:40 36.4 C L 60 20 104/59 L 96 06/30/19 09:30 59 L 20 109/66 96 06/30/19 09:20 57 L 19 105/59 L 96 06/30/19 09:10 36.1 C L 58 L 16 116/63 95 06/30/19 06:01 36.7 C 87 16 97/66 L 93 PG Care Time/CCT Total # of Minutes Spent Total Time Spent with Patient: Total time spent is greater than 50% in coordination of care (as documented) at patient's floor/unit and/or counseling patient:
[2019-06-30] MEDS: OXYCODONE HCL IR 5 MG TAB (IMMEDIATE RELEASE) PO PRN (19:29)
[2019-06-30] MEDS ORDERED: ASPIRIN 81 MG ECTAB PO SCH (21:00)
[2019-06-30] MEDS ORDERED: SENNA 8.6 MG TAB PO SCH (21:00)
[2019-06-30] MEDS ORDERED: ATORVASTATIN 40 MG TAB PO SCH (21:00)
[2019-06-30] MEDS ORDERED: NON-FORMULARY MEDICATION (Coq10 (Ubiquinol) 200 MG) PO SCH (21:00)
[2019-06-30] MEDS: DOCUSATE SODIUM 100 MG CAP PO SCH (21:22)
[2019-06-30] MEDS: CEROVITE ADV FORMULA TAB PO SCH (21:22)
[2019-06-30] MEDS: lisinopriL 20 MG TAB PO SCH (21:22)
[2019-06-30] MEDS: carvediloL 6.25 MG TAB PO SCH (21:23)
[2019-07-01] MEDS ORDERED: INSULIN ASPART 100 UNITS/ML 3 ML PEN SC ONE (02:00)
[2019-07-01] MEDS: MISSING PHYSICIAN SIGNATURE ON ORDER SCH (04:57)
[2019-07-01] MEDS: ACETAMINOPHEN 500 MG TAB PO SCH (05:17)
[2019-07-01 06:12] LABS: Basophils # (auto) 0.01 K/uL (0-0.2); Basophils % (auto) 0.1 %; Eosinophils # (auto) 0.05 K/uL (0-0.5); Eosinophils % (auto) 0.4 %; Hematocrit (blood only) 33.3 % (37-47); Hemoglobin 11.1 g/dL (12.0-16.0); Immature Granulocytes # (auto) 0.03 K/uL (0.00-0.02); Immature Granulocytes % (auto) 0.3 %; Lymphocytes # (auto) 1.91 K/uL (1.2-3.4); Lymphocytes % (auto) 16.7 %; Mean Corpuscular Hemoglobin 32.5 pg (25-34); Mean Corpuscular Hgb Conc 33.3 g/dL (32-36); Mean Corpuscular Volume 97.4 fL (80-100); Mean Platelet Volume 9.3 fL (7.4-10.4); Monocytes # (auto) 0.74 K/uL (0.11-0.59); Monocytes % (auto) 6.5 %; Neutrophils # (auto) 8.69 K/uL (1.4-6.5); Platelet Count 251 K/uL (130-400); RDW Coefficient of Variation 12.9 % (11.5-14.5); RDW Standard Deviation 46.1 fL (36.4-46.3); Red Blood Count 3.42 M/uL (4.2-5.4); White Blood Count 11.43 K/uL (4.8-10.8)
[2019-07-01 06:46] LABS: BUN Creatinine Ratio 24.4 (10-20); Calcium 9.1 mg/dl (8.5-10.1); Creatinine Clr Calc Pharmacy 60.9 ml/min; Est GFR (African American) 86.1; Est GFR (Non-African American) 74.3; Potassium 4.2 mmol/L (3.5-5.1)
--- NOTE | 2019-07-01 07:27 | Orthopedic Progress Note ---
Date of Service July 01, 2019 Assessment & Plan (1) S/p reverse total shoulder arthroplasty: POD#1 Right reverse TSA -Pain management -PT/OT-no active shoulder motion, NWB RUE -DVT prophylaxis-SCDs, resume home aspirin and Brillinta -D/C planning-home later today after therapy with plans on outpatient PT. Subjective Patient is POD#1 right reverse TSA. She is sitting in bedside chair, comfortable. Minimal pain currently. Hoping to go home today. Review of Systems Review of Systems: All systems reviewed & are unremarkable except as noted in HPI & below Physical Exam Physical Exam: Dressing to right shoulder is c/d/i. Hemovac in place. Sling in place. Distally n/v status and sensation intact. Good camp dishwasher strength Results & Data Vital Signs (Past 12 Hours) Vital Signs Temp Pulse Resp BP Pulse Ox 07/01/19 03:21 36.8 C 81 16 105/65 96 06/30/19 23:05 36.8 C 73 18 107/60 92 06/30/19 21:27 69 109/68 06/30/19 19:41 36.5 C 72 16 110/67 91 Laboratory Results H & H 06/17/19 07/01/19 Range/Units 14:22 04:49 Hgb 13.4 11.1 L (12.0-16.0) g/dL Hct 42.1 33.3 L (37-47) % Coagulation 06/17/19 Range/Units 14:22 INR 1.0 (0.9-1.1) (1) S/p reverse total shoulder arthroplasty Laterality: right Qualified Code(s): Z96.611 - Presence of right artificial shoulder joint
[2019-07-01] MEDS: lisinopriL 20 MG TAB PO SCH (07:39)
[2019-07-01] MEDS: CEROVITE ADV FORMULA TAB PO SCH (07:39)
[2019-07-01] MEDS: carvediloL 6.25 MG TAB PO SCH (07:41)
[2019-07-01] MEDS: DOCUSATE SODIUM 100 MG CAP PO SCH (07:42)
--- NOTE | 2019-07-01 08:10 | Anesthesiology Progress Note ---
Date of Service July 01, 2019 Anesthesia Post Procedure Vital Signs Vital Signs: Temp Pulse Pulse Resp BP Pulse Ox 07/01/19 03:21 36.8 C 81 16 105/65 96 06/30/19 23:05 36.8 C 73 18 107/60 92 06/30/19 21:27 69 109/68 06/30/19 19:41 36.5 C 72 16 110/67 91 06/30/19 15:47 36.5 C 77 16 104/63 93 06/30/19 13:16 36.4 C L 92 H 16 113/72 94 06/30/19 12:00 77 16 111/73 97 06/30/19 11:07 65 18 131/80 95 06/30/19 10:32 61 16 115/65 96 06/30/19 10:00 36.6 C 60 19 100/58 L 95 06/30/19 09:49 36.5 C 63 20 106/65 96 06/30/19 09:40 36.4 C L 60 20 104/59 L 96 06/30/19 09:30 59 L 20 109/66 96 06/30/19 09:20 57 L 19 105/59 L 96 06/30/19 09:10 36.1 C L 58 L 16 116/63 95 Pain Intensity Right Arm: Pain Intensity: 6 Notes Mental Status: alert / awake / arousable and participated in evaluation Patient Amnestic to Procedure: Yes Nausea / Vomiting: adequately controlled Pain: adequately controlled Airway Patency, RR, SpO2: stable & adequate BP & HR: stable & adequate Hydration State: stable & adequate Anesthetic Complications: no major complications apparent and Pt Satisfied with anesthetic care
[2019-07-01] MEDS ORDERED: TICAGRELOR 90 MG TAB PO SCH (09:00)
[2019-07-01] MEDS ORDERED: PANTOprazole 40 MG TAB PO SCH (09:00)
[2019-07-01] MEDS ORDERED: MULTIVITAMIN TAB PO SCH (09:00)
[2019-07-01] MEDS ORDERED: ASCORBIC ACID 500 MG TAB PO SCH (09:00)
[2019-07-01] MEDS ORDERED: hydroCHLOROthiazide 25 MG TAB PO SCH (09:00)
[2019-07-01] MEDS ORDERED: POTASSIUM CHLORIDE PWD 20 MEQ PACK PO SCH (09:00)
[2019-07-01] MEDS ORDERED: LACTOBACILLUS ACIDOPHILUS (FLORANEX) TAB PO SCH (09:00)
[2019-07-01] MEDS ORDERED: MONTELUKAST SODIUM 10 MG TABLET PO SCH (09:00)
[2019-07-01] MEDS ORDERED: NON-FORMULARY MEDICATION (Ticagrelor [Brilinta] 60 MG) PO SCH (09:00)
[2019-07-01] MEDS ORDERED: INSULIN GLARGINE SOLOSTAR 100 UNITS/ML 3 ML PEN SC SCH (09:00)
[2019-07-01] MEDS ORDERED: PARoxetine HCl 20 MG TAB PO SCH (09:00)
[2019-07-01] MEDS: INSULIN ASPART 100 UNITS/ML 3 ML PEN SC SCH (09:33)
[2019-07-01] MEDS: OXYCODONE HCL IR 5 MG TAB (IMMEDIATE RELEASE) PO PRN ×2 (09:38→11:05)
--- NOTE | 2019-07-01 12:56 | Communication Note ---
Date of Service: July 01, 2019 Chart reviewed. VSS, Labs acceptable. Patient dressed, right arm in sling, ready for discharge on my arrival. States she is feeling well. Plans to be discharged home with daughter. Denies any complaints. Pain tolerable with medication. NVI. Good education specialist strength. No numbness/tingling. Will need follow up with PCP and ortho as per primary service.
--- NOTE | 2019-07-02 18:06 | Discharge Summary ---
Date of Service July 02, 2019 Admission HPI Per Admitting Provider 74 year old female with PMHx significant for history of MT, HTN, high cholesterol, GERD, anxiety, and DM2 presents with ongoing right shoulder pain. Past RCR done in 2009. Updated MRI chronic massive and retracted rotator cuff tear. She has tried cortisone injection, antiinflammatories, and physical therapy with continued pain. She would like to proceed with surgical intervention. Patient denies headaches, sweats, fevers, chills, double vision, blurred vision, cough, sore throat, dysphagia, chest pain, sob, wheezing, n/v/d/c, numbness, tingling, fatigue, urinary symptoms, mood disorders. ROS positive for right shoulder pain and stiffness. Admission Exam Per Admitting Provider Constitutional: well developed and well nourished; no acute distress Eyes: PERRL, conjunctivae normal, anicteric sclerae ENMT: external ear and nose normal, oropharynx normal Neck: trachea midline, no thyromegaly Respiratory: normal respiratory effort, lungs clear to auscultation Cardiovascular: Rate/Rhythm: regular rate and regular rhythm Extremities: no edema Question of possible systolic murmur Musculoskeletal: right shoulder: Active painful and decreased ROM. Positive impingement signs. 3/5 strength supraspinatus and infraspinatus Skin: no rashes, warm and dry Neurologic: patellar DTR's 2+ bilat, sensation intact Psychiatric: A+Ox3, euthymic affect Principal Diagnosis Right shoulder rotator cuff arthropathy Discharge Exam Constitutional well developed and well nourished; no acute distress Eyes PERRL, conjunctivae normal, anicteric sclerae ENMT external ear and nose normal, oropharynx normal Neck trachea midline, no thyromegaly Respiratory normal respiratory effort, lungs clear to auscultation Cardiovascular RRR, no murmur, no edema Rate/Rhythm: regular rate and regular rhythm Extremities: no edema Skin no rashes, warm and dry Neurologic patellar DTR's 2+ bilat, sensation intact Psychiatric A+Ox3, euthymic affect Discharge Data Allergies Allergy/AdvReac Type Severity Reaction Status Date / Time No Known Allergies Allergy Verified 06/30/19 05:45 Consultations 06/30/19 10:08 Consult Case Management - Discharge Planning Routine Consult Hospitalist Routine Procedures Performed Operation Date: 06/30/19 07:00 Actual Procedures p Right Reverse Total Shoulder Arthroplasty(Right) - Daniel Alcala MD Ordered Studies 06/30/19 05:00 US - OR guided needle placemen Routine Hospital Course (1) S/p reverse total shoulder arthroplasty: Patient presented for same day admission following right reverse total shoulder arthroplasty on 06/30/19. She tolerated procedure well. The Patient had an uneventful hospital course. Post-operatively, her activity was progressed and well tolerated. They participated in PT without difficulty. Labs remained stable- lowest hemoglobin recorded: 11.1. Dr. Alana Tang of medical service was consulted for medical management during admission. Pain controlled on oral medications. Please refer to daily progress notes and PT notes for complete details. After exam on 07/01/19, patient was felt to be stable for discharge home with plans on attending outpatient PT. Patient will f/u in the office in about 2 weeks for further evaluation including x-rays and incision check, sooner if having any issues or concerns. Lab Results 06/17/19 06/17/19 06/17/19 Range/Units 14:20 14:22 14:22 WBC 8.15 (4.8-10.8) K/uL RBC 4.19 L (4.2-5.4) M/uL Hgb 13.4 (12.0-16.0) g/dL Hct 42.1 (37-47) % MCV 100.5 H (80-100) fL MCH 32.0 (25-34) pg MCHC 31.8 L (32-36) g/dL RDW Std Deviation 48.3 H (36.4-46.3) fL RDW Coeff of Radha 13.2 (11.5-14.5) % Plt Count 354 (130-400) K/uL MPV 9.3 (7.4-10.4) fL Immature Gran % (Auto) 0.2 % Neut % (Auto) 64.0 % Lymph % (Auto) 26.3 % [place] % (Auto) 6.4 % Eos % (Auto) 2.7 % Baso % (Auto) 0.4 % Immature Gran # (Auto) 0.02 (0.00-0.02) K/uL Neut # (Auto) 5.22 (1.4-6.5) K/uL Lymph # (Auto) 2.14 (1.2-3.4) K/uL [place] # (Auto) 0.52 (0.11-0.59) K/uL Eos # (Auto) 0.22 (0-0.5) K/uL Baso # (Auto) 0.03 (0-0.2) K/uL PT 10.3 (9.0-12.0) Seconds INR 1.0 (0.9-1.1) APTT 24.3 (21.0-31.0) Seconds PTT Ratio 0.9 Sodium 135 L (136-145) mmol/L Potassium 4.1 (3.5-5.1) mmol/L Chloride 103 (98-107) mmol/L Carbon Dioxide 26 (21-32) mmol/L Anion Gap 6.0 (3-11) BUN 17 (7-18) mg/dl Creatinine 0.66 (0.6-1.2) mg/dl Est Cr Clr Drug Dosing 73.2 ml/min Est GFR ( Amer) 101.6 Est GFR (Non-Af Amer) 87.6 BUN/Creatinine Ratio 26.3 H (10-20) Glucose 122 H (70-99) mg/dl POC Glucose (70-99) mg/dl Estimat Average Glucose mg/dl Hemoglobin A1c (4.5-5.6) % Calcium 9.8 (8.5-10.1) mg/dl Albumin 3.9 (3.4-5.0) gm/dl Urine Color Urine Appearance (Clear) Urine pH (4.5-7.5) Ur Specific [place] (1.000-1.030) Urine Protein (Negative) Urine Glucose (UA) (Negative) Urine Ketones (Negative) Urine Blood (Negative) Urine Nitrite (Negative) Urine Bilirubin (Negative) Urine Urobilinogen (Negative) Ur Leukocyte Esterase (Negative) Blood Type Antibody Screen 06/17/19 06/17/19 06/17/19 Range/Units 14:22 14:22 14:22 WBC (4.8-10.8) K/uL RBC (4.2-5.4) M/uL Hgb (12.0-16.0) g/dL Hct (37-47) % MCV (80-100) fL MCH (25-34) pg MCHC (32-36) g/dL RDW Std Deviation (36.4-46.3) fL RDW Coeff of Radha (11.5-14.5) % Plt Count (130-400) K/uL MPV (7.4-10.4) fL Immature Gran % (Auto) % Neut % (Auto) % Lymph % (Auto) % [place] % (Auto) % Eos % (Auto) % Baso % (Auto) % Immature Gran # (Auto) (0.00-0.02) K/uL Neut # (Auto) (1.4-6.5) K/uL Lymph # (Auto) (1.2-3.4) K/uL [place] # (Auto) (0.11-0.59) K/uL Eos # (Auto) (0-0.5) K/uL Baso # (Auto) (0-0.2) K/uL PT (9.0-12.0) Seconds INR (0.9-1.1) APTT (21.0-31.0) Seconds PTT Ratio Sodium (136-145) mmol/L Potassium (3.5-5.1) mmol/L Chloride (98-107) mmol/L Carbon Dioxide (21-32) mmol/L Anion Gap (3-11) BUN (7-18) mg/dl Creatinine (0.6-1.2) mg/dl Est Cr Clr Drug Dosing ml/min Est GFR ( Amer) Est GFR (Non-Af Amer) BUN/Creatinine Ratio (10-20) Glucose (70-99) mg/dl POC Glucose (70-99) mg/dl Estimat Average Glucose 151 mg/dl Hemoglobin A1c 6.9 H (4.5-5.6) % Calcium (8.5-10.1) mg/dl Albumin (3.4-5.0) gm/dl Urine Color Yellow Urine Appearance Clear (Clear) Urine pH 5.0 (4.5-7.5) Ur Specific [place] 1.019 (1.000-1.030) Urine Protein Negative (Negative) Urine Glucose (UA) 3+ H (Negative) Urine Ketones Negative (Negative) Urine Blood Negative (Negative) Urine Nitrite Negative (Negative) Urine Bilirubin Negative (Negative) Urine Urobilinogen Negative (Negative) Ur Leukocyte Esterase Negative (Negative) Blood Type O Positive Antibody Screen NEGATIVE 01/06/30/19 06/30/19 Range/Units 05:45 09:14 11:22 WBC (4.8-10.8) K/uL RBC (4.2-5.4) M/uL Hgb (12.0-16.0) g/dL Hct (37-47) % MCV (80-100) fL MCH (25-34) pg MCHC (32-36) g/dL RDW Std Deviation (36.4-46.3) fL RDW Coeff of Radha (11.5-14.5) % Plt Count (130-400) K/uL MPV (7.4-10.4) fL Immature Gran % (Auto) % Neut % (Auto) % Lymph % (Auto) % [place] % (Auto) % Eos % (Auto) % Baso % (Auto) % Immature Gran # (Auto) (0.00-0.02) K/uL Neut # (Auto) (1.4-6.5) K/uL Lymph # (Auto) (1.2-3.4) K/uL [place] # (Auto) (0.11-0.59) K/uL Eos # (Auto) (0-0.5) K/uL Baso # (Auto) (0-0.2) K/uL PT (9.0-12.0) Seconds INR (0.9-1.1) APTT (21.0-31.0) Seconds PTT Ratio Sodium (136-145) mmol/L Potassium (3.5-5.1) mmol/L Chloride (98-107) mmol/L Carbon Dioxide (21-32) mmol/L Anion Gap (3-11) BUN (7-18) mg/dl Creatinine (0.6-1.2) mg/dl Est Cr Clr Drug Dosing ml/min Est GFR ( Amer) Est GFR (Non-Af Amer) BUN/Creatinine Ratio (10-20) Glucose (70-99) mg/dl POC Glucose 154 H 182 H 191 H (70-99) mg/dl Estimat Average Glucose mg/dl Hemoglobin A1c (4.5-5.6) % Calcium (8.5-10.1) mg/dl Albumin (3.4-5.0) gm/dl Urine Color Urine Appearance (Clear) Urine pH (4.5-7.5) Ur Specific [place] (1.000-1.030) Urine Protein (Negative) Urine Glucose (UA) (Negative) Urine Ketones (Negative) Urine Blood (Negative) Urine Nitrite (Negative) Urine Bilirubin (Negative) Urine Urobilinogen (Negative) Ur Leukocyte Esterase (Negative) Blood Type Antibody Screen 06/30/19 06/30/19 06/30/19 Range/Units 12:22 17:32 20:44 WBC (4.8-10.8) K/uL RBC (4.2-5.4) M/uL Hgb (12.0-16.0) g/dL Hct (37-47) % MCV (80-100) fL MCH (25-34) pg MCHC (32-36) g/dL RDW Std Deviation (36.4-46.3) fL RDW Coeff of Radha (11.5-14.5) % Plt Count (130-400) K/uL MPV (7.4-10.4) fL Immature Gran % (Auto) % Neut % (Auto) % Lymph % (Auto) % [place] % (Auto) % Eos % (Auto) % Baso % (Auto) % Immature Gran # (Auto) (0.00-0.02) K/uL Neut # (Auto) (1.4-6.5) K/uL Lymph # (Auto) (1.2-3.4) K/uL [place] # (Auto) (0.11-0.59) K/uL Eos # (Auto) (0-0.5) K/uL Baso # (Auto) (0-0.2) K/uL PT (9.0-12.0) Seconds INR (0.9-1.1) APTT (21.0-31.0) Seconds PTT Ratio Sodium (136-145) mmol/L Potassium (3.5-5.1) mmol/L Chloride (98-107) mmol/L Carbon Dioxide (21-32) mmol/L Anion Gap (3-11) BUN (7-18) mg/dl Creatinine (0.6-1.2) mg/dl Est Cr Clr Drug Dosing ml/min Est GFR ( Amer) Est GFR (Non-Af Amer) BUN/Creatinine Ratio (10-20) Glucose (70-99) mg/dl POC Glucose 252 H 139 H 166 H (70-99) mg/dl Estimat Average Glucose mg/dl Hemoglobin A1c (4.5-5.6) % Calcium (8.5-10.1) mg/dl Albumin (3.4-5.0) gm/dl Urine Color Urine Appearance (Clear) Urine pH (4.5-7.5) Ur Specific [place] (1.000-1.030) Urine Protein (Negative) Urine Glucose (UA) (Negative) Urine Ketones (Negative) Urine Blood (Negative) Urine Nitrite (Negative) Urine Bilirubin (Negative) Urine Urobilinogen (Negative) Ur Leukocyte Esterase (Negative) Blood Type Antibody Screen 07/01/19 07/01/19 07/01/19 Range/Units 01:32 04:49 04:49 WBC 11.43 H (4.8-10.8) K/uL RBC 3.42 L (4.2-5.4) M/uL Hgb 11.1 L (12.0-16.0) g/dL Hct 33.3 L (37-47) % MCV 97.4 (80-100) fL MCH 32.5 (25-34) pg MCHC 33.3 (32-36) g/dL RDW Std Deviation 46.1 (36.4-46.3) fL RDW Coeff of Radha 12.9 (11.5-14.5) % Plt Count 251 (130-400) K/uL MPV 9.3 (7.4-10.4) fL Immature Gran % (Auto) 0.3 % Neut % (Auto) 76.0 % Lymph % (Auto) 16.7 % [place] % (Auto) 6.5 % Eos % (Auto) 0.4 % Baso % (Auto) 0.1 % Immature Gran # (Auto) 0.03 H (0.00-0.02) K/uL Neut # (Auto) 8.69 H (1.4-6.5) K/uL Lymph # (Auto) 1.91 (1.2-3.4) K/uL [place] # (Auto) 0.74 H (0.11-0.59) K/uL Eos # (Auto) 0.05 (0-0.5) K/uL Baso # (Auto) 0.01 (0-0.2) K/uL PT (9.0-12.0) Seconds INR (0.9-1.1) APTT (21.0-31.0) Seconds PTT Ratio Sodium 137 (136-145) mmol/L Potassium 4.2 (3.5-5.1) mmol/L Chloride 105 (98-107) mmol/L Carbon Dioxide 27 (21-32) mmol/L Anion Gap 5.0 (3-11) BUN 19 H (7-18) mg/dl Creatinine 0.79 (0.6-1.2) mg/dl Est Cr Clr Drug Dosing 60.9 ml/min Est GFR ( Amer) 86.1 Est GFR (Non-Af Amer) 74.3 BUN/Creatinine Ratio 24.4 H (10-20) Glucose 95 (70-99) mg/dl POC Glucose 125 H (70-99) mg/dl Estimat Average Glucose mg/dl Hemoglobin A1c (4.5-5.6) % Calcium 9.1 (8.5-10.1) mg/dl Albumin (3.4-5.0) gm/dl Urine Color Urine Appearance (Clear) Urine pH (4.5-7.5) Ur Specific [place] (1.000-1.030) Urine Protein (Negative) Urine Glucose (UA) (Negative) Urine Ketones (Negative) Urine Blood (Negative) Urine Nitrite (Negative) Urine Bilirubin (Negative) Urine Urobilinogen (Negative) Ur Leukocyte Esterase (Negative) Blood Type Antibody Screen 07/01/19 Range/Units 09:42 WBC (4.8-10.8) K/uL RBC (4.2-5.4) M/uL Hgb (12.0-16.0) g/dL Hct (37-47) % MCV (80-100) fL MCH (25-34) pg MCHC (32-36) g/dL RDW Std Deviation (36.4-46.3) fL RDW Coeff of Radha (11.5-14.5) % Plt Count (130-400) K/uL MPV (7.4-10.4) fL Immature Gran % (Auto) % Neut % (Auto) % Lymph % (Auto) % [place] % (Auto) % Eos % (Auto) % Baso % (Auto) % Immature Gran # (Auto) (0.00-0.02) K/uL Neut # (Auto) (1.4-6.5) K/uL Lymph # (Auto) (1.2-3.4) K/uL [place] # (Auto) (0.11-0.59) K/uL Eos # (Auto) (0-0.5) K/uL Baso # (Auto) (0-0.2) K/uL PT (9.0-12.0) Seconds INR (0.9-1.1) APTT (21.0-31.0) Seconds PTT Ratio Sodium (136-145) mmol/L Potassium (3.5-5.1) mmol/L Chloride (98-107) mmol/L Carbon Dioxide (21-32) mmol/L Anion Gap (3-11) BUN (7-18) mg/dl Creatinine (0.6-1.2) mg/dl Est Cr Clr Drug Dosing ml/min Est GFR ( Amer) Est GFR (Non-Af Amer) BUN/Creatinine Ratio (10-20) Glucose (70-99) mg/dl POC Glucose 277 H (70-99) mg/dl Estimat Average Glucose mg/dl Hemoglobin A1c (4.5-5.6) % Calcium (8.5-10.1) mg/dl Albumin (3.4-5.0) gm/dl Urine Color Urine Appearance (Clear) Urine pH (4.5-7.5) Ur Specific [place] (1.000-1.030) Urine Protein (Negative) Urine Glucose (UA) (Negative) Urine Ketones (Negative) Urine Blood (Negative) Urine Nitrite (Negative) Urine Bilirubin (Negative) Urine Urobilinogen (Negative) Ur Leukocyte Esterase (Negative) Blood Type Antibody Screen Total Time Total Time Spent Total Time Spent (In Minutes): 20 Discharge Plan Discharge Items Patient Disposition: Home - Self-Care Reason For Visit: Right Shoulder Arthropathies Discharge Diagnosis: Right shoulder rotator cuff arthropathy Activity: Per Instructions section Non-emergency contact: Surgeon Call non-emergency contact if: you have any medication questions, your pain is not controlled, your pain is worsening, your pain is concerning for you, you have a fever, your temperature is above 101, your wound has increased redness, your wound has increased drainage and your wound pain has increased Follow-up/Referrals: Mikey Steel, [Primary Care Provider] - Diet: Regular Addtl Attending Provider Instructions: ACTIVITY RECOMMENDATIONS: SELF CARE INSTRUCTIONS AFTER REVERSE TOTAL SHOULDER ARTHROPLASTY A. You may do daily exercises as taught in physical therapy while in hospital. No lifting with the operative arm. Please schedule your outpatient physical therapy appointment to begin within 2-3 days after leaving the hospital. Specific restrictions will be written on your physical therapy prescription that is provided to you. B. You are to wear your sling/immobilizer at all times EXCEPT when performing your daily exercises, participating in physical therapy and for hygiene purposes. C. You may perform dry, daily dressing changes. Please keep your incision covered. You may shower 48 hours after surgery. Do not apply soap or any ointment/lotions directly over incision. Do not soak incision in bath tub/swimming pool. D. You may use ice as needed to operative shoulder. SPECIAL CARE INSTRUCTIONS: VERY IMPORTANT TO READ AND REVIEW A. There are a few signs you need to watch for after you are home. Call [facility] at [phone] if you experience any of the followin. Increased severe shoulder pain. Some pain is expected especially when you exercise. 2. Increased swelling in you shoulder or arm; pain or swelling in either upper extremity. 3. Any fluid drainage from the incision. 4. Shortness of breath or chest pain. B. Please call [facility] at [phone] if you have any questions or concerns about your operation or recovery. C. Call your physician if: 1. Temperature is greater than 101 degrees (F). 2. Pain is not relieved by prescribed pain medications. 3. Increase drainage or redness from incision. 4. Unanswered questions or concerns. FOLLOW UP VISIT: Please call [facility] at [phone] to schedule a follow up appointment with Dr. Alcala or his PA in 12-14 days from your surgery date. Pending Studies at Discharge: No Stand-Alone Forms: My [employer], Opioid Pain Management, Smoking Cessation Medications and DC Order Prescriptions: New acetaminophen 500 mg Tablet 1,000 mg PO Q8 Qty: 60 RF: 0 oxycodone 5 mg Tablet 5 - 10 mg PO .Q4H-6H MDD 6 PRN (Reason: pain) Qty: 30 RF: 0 Continued atorvastatin 80 mg Tablet 80 mg PO PM RF: 0 carvedilol 6.25 mg Tablet 6.25 mg PO BID RF: 0 lisinopril 20 mg Tablet 20 mg PO BID RF: 0 aspirin 81 mg Tablet,Delayed Release (Dr/Ec) 81 mg PO HS RF: 0 potassium chloride 20 mEq Packet 20 meq PO QAM RF: 0 paroxetine HCl 20 mg Tablet 20 mg PO QAM RF: 0 Vitamin C 100 mg Tablet 600 mg PO DAILY RF: 0 omeprazole 20 mg Capsule,Delayed Release(Dr/Ec) 20 mg PO QAM RF: 0 montelukast [Singulair] 10 mg Tablet 10 mg PO QAM RF: 0 hydrochlorothiazide 25 mg Tablet 25 mg PO QAM RF: 0 metformin 500 mg Tablet Extended Release 24 Hr 1,000 mg PO BID RF: 0 apple cider vinegar 300 mg Tablet 480 mg PO QAM RF: 0 coQ10 (ubiquinol) 200 mg Capsule 200 mg PO BID RF: 0 Victoza 2-Rajesh 0.6 mg/0.1 mL (18 mg/3 mL) Pen Injector 1.8 mg SUBCUT QAM RF: 0 Ocuvite Adult 50 Plus 250-5-1 mg Capsule 1 cap PO BID RF: 0 Probiotic 3 billion cell Capsule 3,000 mmu cells PO QAM RF: 0 Jardiance 25 mg Tablet 25 mg PO QAM RF: 0 Brilinta 60 mg Tablet 60 mg PO BID RF: 0 Lantus U-100 Insulin 100 unit/mL Solution 10 unit SUBCUT QAM RF: 0 Discontinued acetaminophen [Tylenol Extra Strength] 500 mg Tablet 1,000 - 1,500 mg PO BID PRN (Reason: Pain) RF: 0 Discharge Orders: Discharge Order (Routine); Ordered 07/01/19 Ordered By: Thony Mario/Other Patient Handouts: Surgery Prevent DVT After Admission Data Admit Date/Time: 06/30/19 09:16 Attending Provider: Daniel Alcala Admit Provider: Daniel Alcala Primary Care Provider: Mikey Steel Other Interventions: Discharge Summary Assessment (RN) Last Done: 07/01/19 10:45 DC Date/Time DO NOT enter until pt leaves facility: 07/01/19 12:05
== END 2019-07-01 12:05 | disposition home or self-care (01) | DRG 483 ==
LOC: ASU 05:20 → 3E 09:16